=== PATIENT | male | born 1950 | race Caucasian/White ===

== ENCOUNTER → 2016-07-25 | Outpatient (CLI) | payer OTHER ==
[~2016-07-25] MED LIST: IBUP-1050 PO; LISI-725 PO
[2016-07-25 12:38] LABS: BASO % 0.8 %; BASO ABS # 0.04 K/uL (0-0.2); COMPLETE YES; EOS % 1.8 %; HEMATOCRIT 45.8 % (42-52); IG% 0.2 %; LYMPH % 25.7 %; LYMPH ABS # 1.32 K/uL (1.2-3.4); MEAN CELL VOLUME 89.6 fL (80-100); MEAN CORPUSCULAR HEMOGLOBIN 31.5 pg (25-34); MEAN CORPUSCULAR HGB CONC 35.2 g/dl (32-36); MONO % 8.2 %; NEUT % 63.3 %; PLATELET COUNT 166 K/uL (130-400); RED BLOOD COUNT 5.11 M/uL (4.7-6.1); WHITE BLOOD COUNT 5.14 K/uL (4.8-10.8)
[2016-07-25 12:55] LABS: CALCIUM 8.7 mg/dl (8.5-10.1)
[2016-07-25 12:59] LABS: ALKALINE PHOSPHATASE 47 U/L (45-117); ALT/SGPT 24 U/L (12-78); AST/SGOT 14 U/L (15-37); BLOOD UREA NITROGEN 19 mg/dl (7-18); BUN/CREATININE RATIO 17.3 (10-20); CARBON DIOXIDE 24 mmol/L (21-32); CHLORIDE 105 mmol/L (98-107); CHOLESTEROL 122 mg/dl (0-200); GLUCOSE 124 mg/dl (70-99); POTASSIUM 3.7 mmol/L (3.5-5.1); SODIUM 138 mmol/L (136-145); TRIGLYCERIDES 59 mg/dl (0-150); VERY LOW DENSITY LIPOPROT CALC 12 mg/dl
[2016-07-25 13:03] LABS: CHOLESTEROL/HDL RATIO 3.4; HDL CHOLESTEROL 36 mg/dl; LDL CHOLESTEROL CALCULATED 74 mg/dl
[2016-07-25 13:14] LABS: ESTIMATED AVERAGE GLUCOSE 128 mg/dl; HA1C FLAG Normal (Normal)
--- NOTE | 2016-07-29 09:57 | CODING QUERY MEDICAL NECESSITY ---
SUPPORTING DIAGNOSIS NEEDED Dr. Reno, A supporting diagnosis is required for the test/procedure performed on this patient in order for us to be reimbursed by the patient's insurance. Please provide a supporting diagnosis for the following test/procedure listed below next to the test name along with your signature. *If there is no additional diagnosis for this patient that would support the following test/procedure please document that below next to the test/procedure. Test(s)/Procedure(s) that require a supporting diagnosis: * 02179 GLYCATED HEMOGLOBIN DIAGNOSIS: DATE OF SERVICE: 07/25/16 Provider Signature: Date: Thank you [facility] Information Management Once completed, please kindly fax back to [phone] For questions please call [phone]
== END | disposition home or self-care (01) ==
LOC: C.LABBFT 07:43
PROVIDERS: ATTEND Internal Medicine
DX: N40.0 Benign prostatic hyperplasia without lower urinary tract symptoms (principal); R73.03 Prediabetes

== ENCOUNTER → 2016-10-19 | Outpatient (CLI) | payer OTHER ==
[~2016-10-19] MED LIST changes: +OPTIRAY 320 IV PRN
--- NOTE | 2016-10-19 10:54 | DIAGNOSTIC IMAGING REPORT ---
(CHEST) THORAX WITH CLINICAL HISTORY: 66 years-old Male presenting with multiple pulmonary nodules, one year follow-up. TECHNIQUE: Multidetector CT imaging of the chest was performed after the administration of intravenous contrast. IV contrast: 120 mL of Optiray 320. A dose lowering technique was used consistent with the principles of ALARA (as low as reasonably achievable). COMPARISON: 10/19/2015. CT DOSE (mGy.cm): The estimated cumulative dose is 535.81 mGycm. 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 On soft tissue windows, normal thyroid and thoracic inlet. Few subcentimeter lymph nodes in the subcarinal region, unchanged. No evidence of pathologically enlarged lymph nodes in the axilla, supraclavicular, mediastinal, or hilar regions. Atherosclerosis of the aortic arch. Normal heart size. Minimal coronary artery calcification may be present. No pericardial or pleural effusion. Small fat-containing Bochdalek hernias. Multiple well-defined hypodensities in the liver unchanged from prior and most consistent with hepatic cysts. Congenital hypoplasia of the medial segments of the left hepatic lobe. On lung windows, vague groundglass centrilobular nodular opacities throughout the upper lobes, stable to slightly increased from prior exam. Redemonstration of a old calcified granuloma at the right apex. Previously noted 3 mm groundglass nodule in the right upper lobe is unchanged (series 4 image 70) triangular fissural nodule in the right lower lobe measuring 5 mm is also unchanged from prior (series 4 image 165) disease. No new pulmonary nodule. Airways patent. On bone windows, degenerative changes of the spine. IMPRESSION: 1. Stable pulmonary nodules, one of which is groundglass and the larger of which is solid. The largest nodule measures 5 mm. No new nodule. Follow-up per [employer] 2017 recommendations below. 2. Vague groundglass centrilobular nodular opacities throughout the upper lobes, stable to slightly increased from prior exam. In the setting of a history of smoking this of the most consistent with respiratory bronchiolitis. The absence of smoking, differential considerations include hypersensitivity pneumonitis and infection. Electronically signed by: Prabhu Matthew M.D. 10/19/2016 10:53 AM Dictated Date/Time: 10/19/2016 10:45 AM
== END | disposition home or self-care (01) ==
LOC: C.CTS 09:49
PROVIDERS: ATTEND Internal Medicine
DX: R91.8 Other nonspecific abnormal finding of lung field (principal)

== ENCOUNTER → 2017-05-09 | Outpatient (CLI) | payer OTHER ==
[~2017-05-09] MED LIST changes: -IBUP-1050 PO; -LISI-725 PO; +LISI-788 PO; -OPTIRAY 320 IV PRN
[2017-05-10 05:32] LABS: HEMOGLOBIN A1C 5.8 % (4.5-5.6)
== END | disposition home or self-care (01) ==
LOC: C.LABBFT 07:24
PROVIDERS: ATTEND Physician Assistant Medical
DX: R73.03 Prediabetes (principal)